=== PATIENT | male | born 2000 | race Caucasian/White ===

== ENCOUNTER 2023-01-11 18:42 | Emergency (ER) | payer MEDICAID, SELFPAY ==
[2023-01-11 19:07] VITALS: BP 115/80; PULSE 84; RESP 13; TEMP 36.9; O2SAT 98; BMI 22.7
--- NOTE | 2023-01-11 20:03 | W.ED.ANIMALB ---
HPI - Animal Bite General: Chief Complaint: Animal Bite Stated Complaint: Dog bite/ left index finger Time Seen by Provider: 01/11/23 20:03 History of Present Illness: 22-year-old gentleman presenting to the emergency department for dog bite. He reports being bit by a dog known to them who is up-to-date on vaccines. Left index finger posterior. Bleeding controlled with pressure. No other specific changes in health, exacerbating, or alleviating factors identified. Onset (ago): minute(s) Animal: dog Description of animal: household pet, immunizations UTD and appeared well Mechanism: bite Location - Extremities: Left: hand Pain description: burning Context: playing with animal Associated symptoms: Reports no associated symptoms Review of Systems General: Reports: 10 or more systems reviewed and unremarkable except in HPI and below PFSH ED PFSH: Medical History (Updated 01/23/23 @ 16:57 by Mario Alberto Vickers MD) No significant past medical history Surgical History (Updated 01/23/23 @ 16:57 by Mario Alberto Vickers MD) No significant past surgical history Physical Exam Const: COMMON NORMALS: alert GENERAL APPEARANCE: cooperative and well developed HENMT: COMMON NORMALS: normocephalic and atraumatic HEAD & SCALP: normocephalic and atraumatic Eye: COMMON NORMALS: conjunctivae normal CONJUNCTIVA: Yes conjunctivae normal SCLERA: sclerae normal Neck/C-Spine: COMMON NORMALS: supple GENERAL: Yes trachea midline Resp: COMMON NORMALS: clear to auscultation bilaterally EFFORT & INSPECTION: Yes able to speak in complete sentences AUSCULTATION: clear to auscultation bilaterally Cardio: COMMON NORMALS: regular rate and regular rhythm RATE: regular rate RHYTHM: regular rhythm GI: COMMON NORMALS: Soft to palpation PALPATION: Yes Soft to palpation and No Tenderness to palpation present (GI) Extremity: NARRATIVE EXTREMITY EXAM: Irregular superficial laceration to the dorsal aspect of the left index finger. This crosses the proximal interphalangeal joint. GENERAL: Yes normal exam except as noted and No edema LEFT UPPER EXTREMITY: Yes upper arm Neuro: COMMON NORMALS: moves all extremities SENSORIUM/ORIENTATION: Yes alert and No Orientation impaired Psych: COMMON NORMALS: mental status grossly normal and Normal thought process present THOUGHT PROCESS: Normal thought process present Procedures Nerve Block Nerve Block 1: Time out performed: Yes Local Anesthetic: lidocaine 1% Amount of anesthesia used (mL): 1 Side: left Nerve Blocks: digital Procedure Successful: Yes Patient Tolerated Procedure: well and no complications Course Vital Signs: Vital signs: Vital Signs Temperature 98.4 F 01/11/23 19:07 Pulse Rate 88 01/11/23 21:46 Respiratory Rate 12 01/11/23 21:46 Blood Pressure 115/80 01/11/23 19:07 Pulse Oximetry 99 01/11/23 21:46 Oxygen Delivery Me thod Room Air 01/11/23 19:07 MDM - Animal Bite Medical Decision Making 23-year-old gentleman presenting with dog bite. Exam as above. No concern over rabies as dog has been acting normally and is up-to-date on vaccines. Digital block performed and wound irrigated/explored extensively. Best closure determined to be Steri-Strips which were applied with good results. Patient placed in splint for limiting range of motion for initial healing process. Tdap and antibiotic given. The results of ED evaluation were discussed with the patient including prescriptions and/or symptomatic cares (if applicable) including appropriate and responsible use, followup plan, and return precautions. The patient verbalized understanding and felt safe for discharge. Medical Records I reviewed the patient's medical records. Lab Data I reviewed the patient's lab results. Radiology Impressions Finger X-Ray 01/11/23 20:06 IMPRESSION: Soft tissue laceration. No acute bony abnormality. Discharge Plan Discharge Patient Disposition: Home Clinical Impression: Bite by animal Condition: Stable Prescriptions: New amoxicillin-pot clavulanate 875-125 mg tablet 1 tab PO BID Qty: 20 0RF Discharge Orders: Discharge ED (Routine); Ordered 01/11/23 Ordered By: Mario Alberto Vickers Discharge Diet: Usual diet Discharge Activity: Limit activity as instructed Patient Instructions: Animal Bite (ED), Steristrips (ED) Activity Restrictions/Additional Instructions: Thank you for visiting the emergency department. You were seen and evaluated for dog bite. This was protected by Steri-Strips and you will be treated with antibiotics. You may use [id number] medications such as acetaminophen and ibuprofen for pain however please do not exceed the daily recommended dosage as listed on the packaging and please keep in mind that many namebrand medications contain the same active ingredients. Please avoid these medications if previously instructed to do so by another physician due to other underlying medical condition. Please watch for signs of infection, return for any evidence of infection, uncontrolled pain, sudden changes in animal behavior concerning for rabies, or anything else that you are concerned about and feel needs emergency department evaluation. Stand Alone Forms: Work/School Release Coding Level of Care Code ED Art Framing Manager for Jennifer Esteves
--- NOTE | 2023-01-11 20:06 | XRR_ITS ---
PROCEDURE INFORMATION: Exam: XR Left Finger(s) Exam date and time: 01/11/2023 8:14 PM Age: 22 years old Clinical indication: Injury or trauma; Other: Dog bite; Laceration; Left; Index finger; Additional info: Left 2nd, dog bite TECHNIQUE: Imaging protocol: Radiologic exam of the left fingers. Views: Minimum 2 views. COMPARISON: No relevant prior studies available. FINDINGS: Bones/joints: No acute fracture or dislocation. No bony puncture. Soft tissues: There is soft tissue edema with probable laceration dorsal finger. No foreign body. XR/XR finger LT min 2V 00033 IMPRESSION: Soft tissue laceration. No acute bony abnormality.
[2023-01-11] MEDS: tetanus-dipt-pertussis 0.5 mL SDV IM (21:05)
[2023-01-11] MEDS: amoxicillin-clav 875-125 mg Tablet 1 TAB PO (21:05)
[2023-01-11 21:46] VITALS: PULSE 88; RESP 12; O2SAT 99
== END 2023-01-11 21:47 | disposition home or self-care (01) ==
PROVIDERS: Emergency Provider Emergency Medicine
DX: S61.251A Open bite of left index finger without damage to nail, initial encounter (principal); W54.0XXA Bitten by dog, initial encounter; Z23 Encounter for immunization
CPT/HCPCS: 64450; 73140; 90715; 99283